=== PATIENT | female | born 1995 | race African-American/Black ===

== ENCOUNTER 2019-07-08 09:51 | Emergency (ER) | payer OTHER, MEDICAID | END 2019-07-08 10:47 | disposition home or self-care (01) | LOC: ERS 09:51 | DX: A60.04 Herpesviral vulvovaginitis (principal) | CPT/HCPCS: 99282 ==

== ENCOUNTER 2019-09-10 13:38 | Emergency (ER) | payer MEDICAID, SELFPAY | END 2019-09-10 14:49 | disposition home or self-care (01) | LOC: ERS 13:38 | DX: J06.9 Acute upper respiratory infection, unspecified (principal); Z79.899 Other long term (current) drug therapy | CPT/HCPCS: 99283 ==

== ENCOUNTER 2019-11-11 12:48 | Emergency (ER) | payer MEDICAID, SELFPAY ==
[2019-11-11 13:15] LABS: Squamous Epithelial 21-50 HPF (0-3)
[2019-11-11 13:20] LABS: BHCG - Serum POSITIVE (NEGATIVE); Pregs Control Background? CLEAR/WHITE (CLR/WHITE); Pregs Control Bar Appear? YES (CONTROL BAR)
[2019-11-11 13:20] LABS: Bilirubin Negative (Negative); Blood, Urine Negative (Negative); Clarity Turbid (Clear); Glucose, Urine (Dipstick) Normal (Negative); Leukocyte 75 Leu/uL (Negative); Nitrite Negative (Negative); Protein, Urine (Dipstick) 30 mg/dL (Neg-Trace); Urobilinogen Normal mg/dL (Less than 2)
[2019-11-11 13:21] LABS: Bacteria/HPF 1+ HPF (None Seen)
[2019-11-11 13:23] LABS: Mean Platelet Volume 8.9 fL (7.4-10.4); Platelet Count 260 thou/uL (130-400)
[2019-11-11 13:24] LABS: Hemoglobin 12.3 g/dL (12.0-16.0); Red Blood Cell (RBC) Count 5.77 mill/uL (4.20-5.40); White Blood Cell (WBC) Count 5.7 thou/uL (4.8-10.8)
[2019-11-11 13:34] LABS: ALT (SGPT) 19 U/L (8-55); AST (SGOT) 16 U/L (5-34); Albumin 4.4 g/dL (3.5-5.0); Alkaline Phosphatase 65 U/L (40-110); Anion Gap 14 mmol/L (10-20); BUN (Urea Nitrogen) 7 mg/dL (7.0-18.7); Bilirubin, Total 0.5 mg/dL (0.2-1.2); Calc. Creatinine Clearance 0 mL/min (70-130); Calcium 9.6 mg/dL (7.8-10.44); Carbon Dioxide 21 mmol/L (22-29); Chloride 105 mmol/L (98-107); Estimated GFR-MDRD Greater than 90; Globulin 3.5 g/dL (2.4-3.5); Glucose 94 mg/dL (70-105); Potassium 3.7 mmol/L (3.5-5.1); Protein, Total 7.9 g/dL (6.0-8.3); Sodium 136 mmol/L (136-145)
[2019-11-11 13:44] LABS: #Eosinphils 0.2 thou/uL (0.0-0.7); #Lymphocytes 1.9 thou/uL (1.20-3.40); #Monocytes 0.4 thou/uL (0.11-0.59); #Neutrophils 3.3 thou/uL (1.40-6.50); %Basophils 0.8 % (0.0-1.0); %Eosinophils 2.7 % (0.0-10.0); %Monocytes 6.9 % (0.0-10.0); %Neutrophils 56.7 % (42.0-75.0); MDiff Complete? YES; Mean Corpuscular HGB CONC 31.4 g/dL (32.0-36.0); Mean Corpuscular Hemoglobin 21.3 pg (27.0-31.0); Mean Corpuscular Volume 67.7 fL (78.0-98.0); Microcytosis SLIGHT = 6-15 cells (100X) (0-5/hpf); RBC Distribution Width 15.2 % (11.5-14.5); Schistocytes SLIGHT = 2-5 cells (100X) (0-1/hpf)
--- NOTE | 2019-11-11 14:52 | ULT ---
TRANSABDOMINAL TRANSVAGINAL PELVIC ULTRASOUND DATE:: 11/11/2019 1:31 PM CLINICAL HISTORY: Vaginal bleeding and cramping. COMPARISON: Prior exam dated July 26, 2011. TECHNIQUE: Grayscale, color Doppler and spectral Doppler images were obtained of the pelvis see a tra nsabdominal and transvaginal approach FINDINGS: UTERUS: Size: 7.7 x 5.4 x 5.6 cm Mass: None Cervix: Not well seen There is a single intrauterine gestation with a yolk sac and pole identified. There are very fa int heart tones associated with a pole with a cardiac activity of 96 bpm. The estimated gestational age by crown-rump length is 6 weeks and 0 days. Estimated is July 06, 2020. Clinical age is 6 weeks and 6 days with estimated due date of June 30, 2020. OVARIES: Size: Right measures 2.8 x 1.7 cm cm; Left measures 2.8 x 2.2 cm cm Mass: There is a 1.5 cm suspected corpus luteal cyst involving the left ovary.. Flow: Normal CUL-DE-SAC: No free fluid IMPRESSION: Intrauterine gestation of undetermined viability. Cardiac activity is noted at 96 bpm. Continued clin ical and sonographic follow-up is recommended.
== END 2019-11-11 16:01 | disposition home or self-care (01) ==
LOC: ERS 12:48
DX: O26.891 Other specified pregnancy related conditions, first trimester (principal); R10.30 Lower abdominal pain, unspecified; Z3A.01 Less than 8 weeks gestation of pregnancy
CPT/HCPCS: 36415; 76856; 80053; 81003; 81015; 84702; 84703; 85025; 86850; 86900; 86901